=== PATIENT | male | born 1965 | race Caucasian/White ===

== ENCOUNTER 2017-10-03 22:32 | Emergency (ER) | payer BC ==
[~2017-10-03] VITALS: Ht 172.7 cm; Wt 91.0 kg
[~2017-10-03 22:32] MED LIST: Desyrel PO; FLUO20CA39 PO; GABA-532 PO; TRAZ-143 PO
[2017-10-03 23:00] LABS: BASOPHILS # (AUTO) 0.2 X10'3 (0-0.2); BASOPHILS % (AUTO) 1.1 % (0-1); EOSINOPHILS # (AUTO) 0.3 X10'3 (0-0.9); EOSINOPHILS % (AUTO) 2.4 % (0-6); HEMOGLOBIN 15.1 g/dl (14.0-17.9); LYMPHOCYTES # (AUTO) 3.9 X10'3 (1.1-4.8); LYMPHOCYTES % (AUTO) 29.4 % (21-51); MEAN CORPUSCULAR HEMOGLOBIN 31.8 PG (27.0-31.0); MEAN CORPUSCULAR VOLUME 90.9 FL (78-98); MEAN PLATELET VOLUME 8.1 FL (7.4-10.4); MONOCYTES # (AUTO) 1.5 X10'3 (0-0.9); MONOCYTES % (AUTO) 11.4 % (2-12); NEUTROPHILS # (AUTO) 7.5 X10'3 (1.8-7.7); NEUTROPHILS % (AUTO) 55.7 % (42-75); PLATELET COUNT 190 X10'3 (140-440); RED BLOOD COUNT 4.73 X10'6 (4.70-6.10); RED CELL DISTRIBUTION WIDTH 13.7 % (11.5-14.5); WHITE BLOOD COUNT 13.4 X10'3 (4.5-11.0)
[2017-10-03 23:13] LABS: PARTIAL THROMBOPLASTIN TIME 25 SECONDS (22-32)
[2017-10-03 23:19] LABS: ALANINE AMINOTRANSFERASE 41 U/L (12-78); ALBUMIN 3.5 G/DL (3.4-5.0); ALKALINE PHOSPHATASE 93 IU/L (46-116); ANION GAP 12 (8-16); ASPARTATE AMINO TRANSFERASE 20 U/L (10-37); BILIRUBIN,TOTAL 0.3 MG/DL (0.1-1.0); BLOOD UREA NITROGEN 20 MG/DL (7-18); BUN/CREATININE RATIO 16.7 (5.4-32.0); CALCIUM 8.6 MG/DL (8.5-10.1); CHLORIDE 104 MMOL/L (99-107); GLUCOSE 139 MG/DL (70-104); POTASSIUM 3.4 MMOL/L (3.5-5.1); SODIUM 141 MMOL/L (135-145); TOTAL CARBON DIOXIDE 25.3 MMOL/L (24-32); TOTAL PROTEIN 6.9 G/DL (6.4-8.2); eGFR 64 ML/MIN
[2017-10-04] MEDS ORDERED: ipratropium/albuterol 3ml nebule NEB ONE (00:50)
[2017-10-04] MEDS ORDERED: methylPREDNISolone sod succ 125mg/2ml vial IV ONE (00:50)
[2017-10-04] MEDS ORDERED: albuterol 2.5 MG/3 ML nebule CONTNEB PRN (01:25)
[2017-10-04] MEDS ORDERED: ipratropium 0.5 MG/2.5ML nebule IH ONE (01:25)
[2017-10-04] MEDS ORDERED: AZIT-63 PO (03:10)
[2017-10-04] MEDS ORDERED: PRED20TA PO (03:10)
[2017-10-04 03:14] VITALS: BP 111/65
== END 2017-10-05 03:24 | disposition home or self-care (01) ==
LOC: ER 22:33
DX: J44.1 Chronic obstructive pulmonary disease with (acute) exacerbation (principal); I25.10 Atherosclerotic heart disease of native coronary artery without angina pectoris; I25.2 Old myocardial infarction; G89.29 Other chronic pain; F17.200 Nicotine dependence, unspecified, uncomplicated; F12.10 Cannabis abuse, uncomplicated; Z95.0 Presence of cardiac pacemaker; Z56.0 Unemployment, unspecified
CPT/HCPCS: 36415; 71046; 80053; 83880; 84484; 85025; 85610; 85730; 94644; 96374; 99285; J2930

== ENCOUNTER 2018-07-12 13:03 | Day surgery (SDC) | payer BC, MEDICAID ==
[2018-07-12] VITALS (9 sets, daily range): BP systolic 98–121; BP diastolic 49–71
[~2018-07-12] VITALS: Ht 172.7 cm; Wt 88.3 kg
[~2018-07-12 13:03] MED LIST changes: -TRAZ-143 PO; +TRAZ-218 PO
[2018-07-12] MEDS ORDERED: LORazepam 0.5 MG tablet PO PRN (13:40)
[2018-07-12] MEDS ORDERED: diphenhydrAMINE 25mg capsule PO PRN (13:40)
[2018-07-12] MEDS ORDERED: normal saline 1000ml 1,000 ML IV SCH (13:40)
[2018-07-12] MEDS ORDERED: ATOR20TA PO (14:17)
[2018-07-12] MEDS ORDERED: BUPR100T13 PO (14:17)
[2018-07-12] MEDS ORDERED: GABA-532 PO (14:17)
[2018-07-12] MEDS ORDERED: midazolam 2 mg/2 ml injection ONE (18:20)
[2018-07-12] MEDS ORDERED: heparin 1,000unit/ml 10ml vial 10 ML ONE (18:20)
[2018-07-12] MEDS ORDERED: LIDOcaine 1% (10mg/ml)w/preservative injection 20ml MDV ONE (18:20)
[2018-07-12] MEDS ORDERED: fentaNYL/PF 50MCG/1 ML 2ML syringe ONE (18:20)
[2018-07-12] MEDS ORDERED: iohexol 350 MG/1 ML 200ml bottle ONE (18:21)
[2018-07-12] MEDS ORDERED: ticagrelor 90mg tablet ONE (18:43)
[2018-07-12] MEDS ORDERED: HYDROcodone/acetaminophen 5mg/325mg tablet PO PRN (19:15)
[2018-07-12] MEDS ORDERED: OXAZEpam 15mg capsule PO PRN (19:15)
[2018-07-12] MEDS ORDERED: nitroGLYCERIN 0.4mg SUBLingual tab SL PRN (19:15)
[2018-07-12] MEDS ORDERED: HYDROcodone/acetaminophen 10/325mg tab PO PRN (19:15)
[2018-07-12] MEDS ORDERED: proCHLORperazine 10 MG/2 ml inj IV PRN (19:15)
[2018-07-12] MEDS ORDERED: ondansetron/PF 4mg/2ml inj IV PRN (19:15)
== END 2018-07-12 21:20 | disposition home or self-care (01) ==
LOC: SSTAY O 13:03
PROVIDERS: ATTEND Internal Medicine Interventional Cardiology
DX: I25.118 Atherosclerotic heart disease of native coronary artery with other forms of angina pectoris (principal); F17.210 Nicotine dependence, cigarettes, uncomplicated; M19.90 Unspecified osteoarthritis, unspecified site; F10.21 Alcohol dependence, in remission; F32.9 Major depressive disorder, single episode, unspecified; F41.8 Other specified anxiety disorders; Z86.14 Personal history of Methicillin resistant Staphylococcus aureus infection; Z79.891 Long term (current) use of opiate analgesic; Z95.0 Presence of cardiac pacemaker; Z86.74 Personal history of sudden cardiac arrest; Z79.899 Other long term (current) drug therapy; Z98.890 Other specified postprocedural states
CPT/HCPCS: 93005; 93458; 99152; A6257; C1760; C1874; C9600; J1644; J2001; J2250; J3010; J7030; Q0163; Q9967; 99153; A4620; C1769; C9601

== ENCOUNTER 2019-06-26 23:30 | Emergency (ER) | payer BC, MEDICAID ==
[~2019-06-26] VITALS: Ht 172.7 cm; Wt 96.6 kg
[~2019-06-26 23:30] MED LIST changes: +ATOR20TA PO; +BUPR100T13 PO; -TRAZ-218 PO; +TRAZ-251 PO
[2019-06-27] MEDS ORDERED: aspirin 325mg tablet PO ONE (00:25)
[2019-06-27] MEDS ORDERED: normal saline 1000ml 1,000 ML IV ONE (00:25)
[2019-06-27] MEDS ORDERED: ondansetron/PF 4mg/2ml inj IV ONE (00:25)
[2019-06-27] MEDS ORDERED: morphine 4 MG/ML inj SYRINge IV ONE (00:25)
[2019-06-27 00:27] LABS: BASOPHILS # (AUTO) 0.1 X10'3 (0-0.2); BASOPHILS % (AUTO) 1.3 % (0-1); EOSINOPHILS # (AUTO) 0.3 X10'3 (0-0.9); EOSINOPHILS % (AUTO) 2.6 % (0-6); HEMATOCRIT 42.7 % (42.0-52.0); HEMOGLOBIN 14.6 g/dl (14.0-17.9); LYMPHOCYTES # (AUTO) 3.3 X10'3 (1.1-4.8); LYMPHOCYTES % (AUTO) 29.6 % (21-51); MEAN CORPUSCULAR HEMOGLOBIN 31.5 PG (27.0-31.0); MEAN CORPUSCULAR HGB CONC 34.3 g/dL (33.0-36.5); MEAN PLATELET VOLUME 8.4 FL (7.4-10.4); MONOCYTES # (AUTO) 1.4 X10'3 (0-0.9); MONOCYTES % (AUTO) 12.9 % (2-12); NEUTROPHILS # (AUTO) 5.9 X10'3 (1.8-7.7); NEUTROPHILS % (AUTO) 53.6 % (42-75); PLATELET COUNT 216 X10'3 (140-440); RED BLOOD COUNT 4.64 X10'6 (4.70-6.10); RED CELL DISTRIBUTION WIDTH 13.3 % (11.5-14.5); WHITE BLOOD COUNT 11.1 X10'3 (4.5-11.0)
[2019-06-27] MEDS ORDERED: iohexol 350MG/ML 100ml bottle IV ONE (00:35)
[2019-06-27 00:40] LABS: ALANINE AMINOTRANSFERASE 37 U/L (12-78); ALBUMIN 3.3 G/DL (3.4-5.0); ALKALINE PHOSPHATASE 115 IU/L (46-116); ANION GAP 5 (8-16); ASPARTATE AMINO TRANSFERASE 22 U/L (10-37); BILIRUBIN,TOTAL 0.2 MG/DL (0.1-1.0); BLOOD UREA NITROGEN 16 MG/DL (7-18); BUN/CREATININE RATIO 15.2 (5.4-32.0); CALCIUM 8.9 MG/DL (8.5-10.1); CHLORIDE 108 MMOL/L (99-107); CREATININE 1.05 MG/DL (0.60-1.10); GLUCOSE 132 MG/DL (70-104); PARTIAL THROMBOPLASTIN TIME 25 SECONDS (22-32); POTASSIUM 3.4 MMOL/L (3.5-5.1); SODIUM 141 MMOL/L (135-145); TOTAL CARBON DIOXIDE 27.7 MMOL/L (24-32); TOTAL PROTEIN 6.7 G/DL (6.4-8.2); eGFR 74 ML/MIN
[2019-06-27] MEDS ORDERED: ketorolac trometh. 30mg/ml inj. IV ONE (01:25)
[2019-06-27 02:12] VITALS: BP 117/70
== END 2019-06-27 02:15 | disposition home or self-care (01) ==
LOC: ER 23:31
DX: R07.89 Other chest pain (principal); I25.10 Atherosclerotic heart disease of native coronary artery without angina pectoris; I25.2 Old myocardial infarction; J44.9 Chronic obstructive pulmonary disease, unspecified; G89.29 Other chronic pain; F12.90 Cannabis use, unspecified, uncomplicated; Z79.899 Other long term (current) drug therapy; Z95.0 Presence of cardiac pacemaker; Z56.0 Unemployment, unspecified
CPT/HCPCS: 36415; 71045; 71275; 80053; 84484; 85025; 85610; 85730; 93005; 96374; 96375; 99284; J1885; J2270; J2405; J7030; Q9967

== ENCOUNTER 2020-08-02 11:34 | Emergency (ER) | payer MEDICAID ==
[~2020-08-02] VITALS: Ht 172.7 cm; Wt 100.0 kg
[~2020-08-02 11:34] MED LIST changes: -ATOR20TA PO; +ATOR40TA72 PO; +BACL10TA2 PO; -BUPR100T13 PO; +BUPR200T PO; +CLOP75TA35 PO; -Desyrel PO; -FLUO20CA39 PO; -GABA-532 PO; +GABA600T13 PO; +LORA10TA7 PO; +METF-950 PO; +METO25TA6 PO; +PRAZ5CAP PO; +SERT50TA10 PO; -TRAZ-251 PO; +TRAZ-256 PO
[2020-08-02] MEDS ORDERED: aspirin 81mg tab.chew PO ONE (11:45)
[2020-08-02] MEDS ORDERED: ondansetron/PF 4mg/2ml inj IV ONE (11:50)
[2020-08-02] MEDS ORDERED: morphine 4 MG/ML inj SYRINge IV PRN (11:50)
[2020-08-02] MEDS ORDERED: nitroGLYCERIN 0.4mg SUBLingual tab SL PRN (11:50)
[2020-08-02] MEDS ORDERED: normal saline 1000ML IV soln IVB ONE (11:50)
[2020-08-02 12:15] LABS: BASOPHILS # (AUTO) 0.2 X10'3 (0-0.2); BASOPHILS % (AUTO) 1.8 % (0-1); EOSINOPHILS # (AUTO) 0.2 X10'3 (0-0.9); EOSINOPHILS % (AUTO) 2.3 % (0-6); HEMOGLOBIN 14.9 g/dl (14.0-17.9); LYMPHOCYTES # (AUTO) 2.3 X10'3 (1.1-4.8); LYMPHOCYTES % (AUTO) 24.9 % (21-51); MEAN CORPUSCULAR HEMOGLOBIN 31.3 PG (27.0-31.0); MEAN CORPUSCULAR HGB CONC 33.7 g/dL (33.0-36.5); MEAN CORPUSCULAR VOLUME 92.6 FL (78-98); MEAN PLATELET VOLUME 8.8 FL (7.4-10.4); MONOCYTES # (AUTO) 0.8 X10'3 (0-0.9); MONOCYTES % (AUTO) 8.4 % (2-12); NEUTROPHILS # (AUTO) 5.8 X10'3 (1.8-7.7); NEUTROPHILS % (AUTO) 62.6 % (42-75); PLATELET COUNT 181 X10'3 (140-440); RED BLOOD COUNT 4.75 X10'6 (4.70-6.10); RED CELL DISTRIBUTION WIDTH 13.5 % (11.5-14.5); WHITE BLOOD COUNT 9.2 X10'3 (4.5-11.0)
[2020-08-02 12:21] LABS: D-DIMER 0.48 MG/L FEU (0-0.50)
[2020-08-02 12:26] LABS: ALANINE AMINOTRANSFERASE 39 U/L (12-78); ALBUMIN 3.2 G/DL (3.4-5.0); ALKALINE PHOSPHATASE 98 IU/L (46-116); ANION GAP 6 (8-16); ASPARTATE AMINO TRANSFERASE 18 U/L (10-37); BILIRUBIN,TOTAL 0.4 MG/DL (0.1-1.0); BLOOD UREA NITROGEN 12 MG/DL (7-18); CHLORIDE 108 MMOL/L (99-107); CREATININE 1.09 MG/DL (0.60-1.10); GLUCOSE 186 MG/DL (70-104); POTASSIUM 4.1 MMOL/L (3.5-5.1); SODIUM 140 MMOL/L (135-145); TOTAL CARBON DIOXIDE 25.6 MMOL/L (24-32); TOTAL PROTEIN 6.4 G/DL (6.4-8.2); eGFR 70 ML/MIN
[2020-08-02 12:31] LABS: MAGNESIUM 1.8 MG/DL (1.5-2.4)
[2020-08-02] MEDS ORDERED: mag hydrox/Alum hydrox/simeth 30ml oral suspension PO ONE (12:35)
[2020-08-02] MEDS ORDERED: LIDOcaine Viscous 15ml cup MM ONE (12:35)
[2020-08-02] MEDS ORDERED: famotidine/PF 10 mg/ml inj IV ONE (12:35)
[2020-08-02] MEDS ORDERED: sucralfate 1 gm tablet PO ONE (12:35)
--- NOTE | 2020-08-02 13:17 | NUR ---
called [employer] to let them know we need to interigate his pacemaker, they will be calling the rep.
--- NOTE | 2020-08-02 13:32 | NUR ---
rep from [employer] called back and he honey not be able to be here till later today around 1999, [employer] down[employer] made aware and we are going to get in contact with pts building official. will continue to monitor
--- NOTE | 2020-08-02 15:09 | NUR ---
Pt ambulated to restroom without assist.
[2020-08-02 15:37] VITALS: BP 120/81
== END 2020-08-02 16:07 | disposition home or self-care (01) ==
LOC: ER 11:34
DX: R07.9 Chest pain, unspecified (principal); J44.9 Chronic obstructive pulmonary disease, unspecified; G89.29 Other chronic pain; M54.9 Dorsalgia, unspecified; I25.10 Atherosclerotic heart disease of native coronary artery without angina pectoris; F12.10 Cannabis abuse, uncomplicated; Z56.0 Unemployment, unspecified; Z79.899 Other long term (current) drug therapy
CPT/HCPCS: 36415; 71045; 80053; 83735; 83880; 84484; 85025; 85379; 93005; 96361; 96374; 96375; 99285; J2405; J3490; J7030

== ENCOUNTER 2022-03-13 18:17 | Emergency (ER) | payer MEDICARE ==
[~2022-03-13] VITALS: Ht 172.7 cm; Wt 93.0 kg
[~2022-03-13 18:17] MED LIST changes: -BUPR200T PO; +BUPR200T27 PO; +CLOP75TA34 PO; -CLOP75TA35 PO; +LOP25T PO; -METF-950 PO; -METO25TA6 PO; +SERT-433 PO; -SERT50TA10 PO
[2022-03-13] MEDS ORDERED: nitroGLYCERIN 0.4mg/hour patch TD ONE (18:55)
[2022-03-13] MEDS ORDERED: normal saline 1000ml 1,000 ML IV ONE (18:55)
[2022-03-13 19:26] LABS: BASOPHILS # (AUTO) 0.1 X10'3 (0-0.2); BASOPHILS % (AUTO) 1.1 % (0-1); EOSINOPHILS # (AUTO) 0.4 X10'3 (0-0.9); EOSINOPHILS % (AUTO) 3.7 % (0-6); HEMATOCRIT 40.2 % (42.0-52.0); HEMOGLOBIN 13.4 g/dl (14.0-17.9); LYMPHOCYTES # (AUTO) 3.1 X10'3 (1.1-4.8); LYMPHOCYTES % (AUTO) 29.3 % (21-51); MEAN CORPUSCULAR HEMOGLOBIN 30.4 PG (27.0-31.0); MEAN CORPUSCULAR HGB CONC 33.4 g/dL (33.0-36.5); MEAN CORPUSCULAR VOLUME 91.1 FL (78-98); MEAN PLATELET VOLUME 8.3 FL (7.4-10.4); MONOCYTES # (AUTO) 1.2 X10'3 (0-0.9); MONOCYTES % (AUTO) 11.2 % (2-12); NEUTROPHILS # (AUTO) 5.8 X10'3 (1.8-7.7); NEUTROPHILS % (AUTO) 54.7 % (42-75); PLATELET COUNT 160 X10'3 (140-440); RED BLOOD COUNT 4.41 X10'6 (4.70-6.10); RED CELL DISTRIBUTION WIDTH 13.4 % (11.5-14.5); WHITE BLOOD COUNT 10.6 X10'3 (4.5-11.0)
[2022-03-13 19:39] LABS: APTT 25 SECONDS (22-32)
[2022-03-13 19:42] LABS: ANION GAP 9 (8-16); BILIRUBIN,TOTAL 0.3 MG/DL (0.1-1.0); BLOOD UREA NITROGEN 15 MG/DL (7-18); BUN/CREATININE RATIO 15.2 (5.4-32.0); CALCIUM 7.8 MG/DL (8.5-10.1); CHLORIDE 109 MMOL/L (99-107); CREATININE 0.99 MG/DL (0.60-1.10); GLUCOSE 131 MG/DL (70-104); POTASSIUM 3.7 MMOL/L (3.5-5.1); SODIUM 143 MMOL/L (135-145); TOTAL CARBON DIOXIDE 24.8 MMOL/L (24-32); TOTAL PROTEIN 6.1 G/DL (6.4-8.2); eGFR 78 ML/MIN
[2022-03-13 19:43] LABS: ALANINE AMINOTRANSFERASE 45 U/L (12-78); ALBUMIN 3.1 G/DL (3.4-5.0); ALKALINE PHOSPHATASE 78 IU/L (46-116); ASPARTATE AMINO TRANSFERASE 16 U/L (10-37)
[2022-03-13 19:50] LABS: ETHANOL < 0.010 GM/DL (0.0-0.010); LIPASE 126 U/L (73-393)
[2022-03-13 22:13] VITALS: BP 109/71
== END 2022-03-13 22:15 | disposition home or self-care (01) ==
LOC: ER 18:18
DX: R07.9 Chest pain, unspecified (principal); I11.9 Hypertensive heart disease without heart failure; G89.29 Other chronic pain; M54.9 Dorsalgia, unspecified; F12.10 Cannabis abuse, uncomplicated; Z95.1 Presence of aortocoronary bypass graft; Z79.899 Other long term (current) drug therapy
CPT/HCPCS: 36415; 71045; 80053; 80320; 83690; 83735; 83880; 84484; 85025; 85610; 85730; 93005; 96360; 99285; J7030

== ENCOUNTER 2022-03-18 10:39 | Day surgery (SDC) | payer MEDICARE, MEDICAID ==
[2022-03-18] VITALS (8 sets, daily range): BP systolic 91–117; BP diastolic 42–66
[~2022-03-18] VITALS: Ht 172.7 cm; Wt 89.3 kg
[2022-03-18] MEDS ORDERED: heparin 1,000unit/ml 10ml vial 10 ML ONE (11:10)
[2022-03-18] MEDS ORDERED: LIDOcaine 1% (10mg/ml) 2ml vial ONE (11:10)
[2022-03-18] MEDS ORDERED: nitroGLYCERIN-Tridil 50MG/D5W 250 ML IV ONE (11:10)
[2022-03-18] MEDS ORDERED: verapamil 2.5 mg/ml inj IV ONE (11:10)
[2022-03-18] MEDS ORDERED: iohexol 350MG/ML 100ml bottle IV ONE ×2 (11:10→12:00)
[2022-03-18] MEDS ORDERED: normal saline 1,000 ML IV SCH (11:20)
[2022-03-18] MEDS ORDERED: diphenhydrAMINE 25mg capsule PO PRN (11:20)
[2022-03-18] MEDS ORDERED: LORazepam 0.5 MG tablet PO PRN (11:20)
[2022-03-18] MEDS ORDERED: LISI20TA28 PO (11:29)
[2022-03-18] MEDS ORDERED: METF-438 PO (11:30)
[2022-03-18] MEDS ORDERED: FLUT16SP2 BOTHNARES (11:31)
[2022-03-18] MEDS ORDERED: iohexol 350 MG/ML 50ML vial IV ONE (12:00)
[2022-03-18] MEDS ORDERED: fentaNYL/PF 50MCG/1 ML 2ML syringe ONE (12:47)
[2022-03-18] MEDS ORDERED: midazolam 1 mg/ML 2ml injection ONE (12:47)
[2022-03-18] MEDS ORDERED: HYDROcodone/acetaminophen 5mg/325mg tablet PO PRN (14:25)
[2022-03-18] MEDS ORDERED: HYDROcodone/acetaminophen 10/325mg tab PO PRN (14:25)
== END 2022-03-18 16:30 | disposition home or self-care (01) ==
LOC: SSTAY O 10:39
PROVIDERS: ATTEND Internal Medicine Interventional Cardiology
DX: I25.10 Atherosclerotic heart disease of native coronary artery without angina pectoris (principal); F32.9 Major depressive disorder, single episode, unspecified; I10 Essential (primary) hypertension; E78.5 Hyperlipidemia, unspecified; F17.210 Nicotine dependence, cigarettes, uncomplicated; F43.10 Post-traumatic stress disorder, unspecified; Z95.0 Presence of cardiac pacemaker; Z79.899 Other long term (current) drug therapy; Z95.5 Presence of coronary angioplasty implant and graft; Z98.890 Other specified postprocedural states; Z79.01 Long term (current) use of anticoagulants
CPT/HCPCS: 93005; 93458; 99152; A6258; C1769; C1894; J1644; J2250; J3010; J3490; J7030; Q0163; Q9967; A4620; A5120

== ENCOUNTER 2023-07-10 22:53 | Emergency (ER) | payer MEDICARE, MEDICAID ==
[~2023-07-10] VITALS: Ht 172.7 cm; Wt 90.8 kg
[~2023-07-10 22:53] MED LIST changes: +APIX5TAB3 PO; -ATOR40TA72 PO; +BACL-11 PO; -BACL10TA2 PO; -BUPR200T27 PO; -CLOP75TA34 PO; +DULO60CA65 PO; +FLO0.4C PO; -LOP25T PO; +METF-438 PO; +MONT-40 PO; +NITR0.4T51 SL; +OMEP20CA16 PO; -PRAZ5CAP PO; +PRAZ5CAP2 PO; +SEMA1PEN3 SQ; -SERT-433 PO; +SERT-434 PO; -TRAZ-256 PO; +TRAZ150T78 PO
[2023-07-10] MEDS ORDERED: aspirin 325mg tablet PO ONE (23:15)
[2023-07-10 23:28] LABS: BASOPHILS # (AUTO) 0.2 X10'3 (0-0.2); BASOPHILS % (AUTO) 1.1 % (0-1); EOSINOPHILS # (AUTO) 0.3 X10'3 (0-0.9); HEMATOCRIT 45.4 % (42.0-52.0); HEMOGLOBIN 15.8 g/dl (14.0-17.9); LYMPHOCYTES # (AUTO) 5.1 X10'3 (1.1-4.8); MEAN CORPUSCULAR HEMOGLOBIN 31.9 PG (27.0-31.0); MEAN CORPUSCULAR HGB CONC 34.7 g/dL (33.0-36.5); MEAN CORPUSCULAR VOLUME 91.9 FL (78-98); MEAN PLATELET VOLUME 8.5 FL (7.4-10.4); MONOCYTES # (AUTO) 1.5 X10'3 (0-0.9); MONOCYTES % (AUTO) 10.1 % (2-12); NEUTROPHILS % (AUTO) 52.8 % (42-75); PLATELET COUNT 186 X10'3 (140-440); RED BLOOD COUNT 4.94 X10'6 (4.70-6.10); RED CELL DISTRIBUTION WIDTH 13.5 % (11.5-14.5); WHITE BLOOD COUNT 15.1 X10'3 (4.5-11.0)
[2023-07-11 00:03] LABS: ALANINE AMINOTRANSFERASE 27 U/L (12-78); ALBUMIN 3.5 G/DL (3.4-5.0); ALKALINE PHOSPHATASE 106 IU/L (46-116); BILIRUBIN,TOTAL 0.3 MG/DL (0.1-1.0); BLOOD UREA NITROGEN 11 MG/DL (7-18); BUN/CREATININE RATIO 9.4 (10.0-20.0); CALCIUM 8.7 MG/DL (8.5-10.1); CREATININE 1.17 MG/DL (0.60-1.10); LIPASE 52 U/L (16-77); MAGNESIUM 1.7 MG/DL (1.5-2.4); PRO BRAIN NATRIURETIC PEPTIDE 33 PG/ML (0-125); TOTAL CARBON DIOXIDE 27.3 MMOL/L (24-32); TOTAL PROTEIN 7.1 G/DL (6.4-8.2); eCRCL 67 ML/MIN; eGFR 64 ML/MIN
[2023-07-11 00:43] LABS: ASPARTATE AMINO TRANSFERASE 17 U/L (10-37); GLUCOSE 186 MG/DL (70-104)
[2023-07-11 00:55] LABS: ANION GAP 10 (8-16); CHLORIDE 101 MMOL/L (99-107); POTASSIUM 3.4 MMOL/L (3.5-5.1); SODIUM 138 MMOL/L (135-145)
[2023-07-11] MEDS ORDERED: acetaminophen 325mg tablet PO ONE (01:35)
[2023-07-11 02:12] LABS: D-DIMER 0.33 MG/L FEU (0-0.50)
[2023-07-11 02:59] VITALS: BP 133/76; PULSE 76; RESP 15; TEMP 98.6; O2SAT 99
== END 2023-07-11 03:00 | disposition home or self-care (01) ==
LOC: ER 22:54
DX: R07.9 Chest pain, unspecified (principal); R06.02 Shortness of breath; R11.0 Nausea
CPT/HCPCS: 36415; 71045; 80053; 83690; 83735; 83880; 84484; 85025; 85379; 93005; 99285

== ENCOUNTER 2023-10-25 14:59 | Emergency (ER) | payer MEDICARE, MEDICAID ==
[~2023-10-25] VITALS: Ht 172.7 cm; Wt 92.3 kg
[2023-10-25 15:15] LABS: BASOPHILS # (AUTO) 0.1 X10'3 (0-0.2); BASOPHILS % (AUTO) 0.8 % (0-1); EOSINOPHILS # (AUTO) 0.1 X10'3 (0-0.9); EOSINOPHILS % (AUTO) 0.9 % (0-6); HEMATOCRIT 44.5 % (42.0-52.0); HEMOGLOBIN 15.2 g/dl (14.0-17.9); LYMPHOCYTES # (AUTO) 3.7 X10'3 (1.1-4.8); LYMPHOCYTES % (AUTO) 36.5 % (21-51); MEAN CORPUSCULAR HEMOGLOBIN 30.9 PG (27.0-31.0); MEAN CORPUSCULAR VOLUME 90.8 FL (78-98); MEAN PLATELET VOLUME 8.2 FL (7.4-10.4); MONOCYTES % (AUTO) 9.5 % (2-12); NEUTROPHILS # (AUTO) 5.3 X10'3 (1.8-7.7); NEUTROPHILS % (AUTO) 52.3 % (42-75); PLATELET COUNT 163 X10'3 (140-440); RED CELL DISTRIBUTION WIDTH 13.4 % (11.5-14.5); WHITE BLOOD COUNT 10.1 X10'3 (4.5-11.0)
[2023-10-25 15:20] VITALS: BP 107/69; PULSE 83; RESP 18; TEMP 97.4; O2SAT 97
[2023-10-25 15:31] LABS: ALANINE AMINOTRANSFERASE 31 U/L (12-78); ALBUMIN 3.6 G/DL (3.4-5.0); ALKALINE PHOSPHATASE 90 IU/L (46-116); ANION GAP 11 (8-16); ASPARTATE AMINO TRANSFERASE 16 U/L (10-37); BILIRUBIN,TOTAL 0.5 MG/DL (0.1-1.0); BLOOD UREA NITROGEN 17 MG/DL (7-18); BUN/CREATININE RATIO 15.7 (10.0-20.0); CHLORIDE 104 MMOL/L (99-107); CREATININE 1.08 MG/DL (0.60-1.10); GLUCOSE 187 MG/DL (70-104); SODIUM 142 MMOL/L (135-145); TOTAL CARBON DIOXIDE 27.2 MMOL/L (24-32); TOTAL PROTEIN 7.2 G/DL (6.4-8.2); eCRCL 72 ML/MIN; eGFR 70 ML/MIN
[2023-10-25 15:38] LABS: PRO BRAIN NATRIURETIC PEPTIDE 63 PG/ML (0-125)
[2023-10-25] MEDS: aspirin 325mg tablet PO ONE (15:42)
[2023-10-25 17:18] LABS: D-DIMER 0.49 MG/L FEU (0-0.50)
[2023-10-25] MEDS ORDERED: HYDR-3965 PO (17:55)
== END 2023-10-25 18:02 | disposition home or self-care (01) ==
LOC: ER 14:59
DX: R07.9 Chest pain, unspecified (principal); I50.9 Heart failure, unspecified; J44.9 Chronic obstructive pulmonary disease, unspecified; G89.29 Other chronic pain; M54.9 Dorsalgia, unspecified; F12.10 Cannabis abuse, uncomplicated; Z79.899 Other long term (current) drug therapy; Z79.1 Long term (current) use of non-steroidal anti-inflammatories (NSAID)
CPT/HCPCS: 36415; 71045; 80053; 83880; 84484; 85025; 85379; 93005; 99285